=== PATIENT | male | born 1965 | race Caucasian/White ===

== ENCOUNTER → 2019-06-11 | Outpatient (CLI) | payer OTHER ==
[~2019-06-11] MED LIST: AMLODIPINE BESY10 MG PO; AVAPRO300 MG PO; BYSTOLIC 5 MG5 M1 PO; CARAFATE1 GM PO; COZAAR 50 MG TA50 M1 PO; FLONASE 0.05%50 MCG NASAL; LEXAPRO 10 MG T10 M1 PO; PRAVACHOL40 MG PO; PRILOSEC20 MG PO; REGLAN 10 MG TA10 MG PO
== END ==
LOC: CAT 15:19
DX: Z13.6 Encounter for screening for cardiovascular disorders (principal); I25.10 Atherosclerotic heart disease of native coronary artery without angina pectoris; E78.00 Pure hypercholesterolemia, unspecified

== ENCOUNTER → 2019-08-10 | Outpatient (CLI) | payer BC | LOC: SJCVCIMAG 10:32 | DX: I08.8 Other rheumatic multiple valve diseases (principal); E78.00 Pure hypercholesterolemia, unspecified; I10 Essential (primary) hypertension; E78.5 Hyperlipidemia, unspecified; F17.210 Nicotine dependence, cigarettes, uncomplicated; Z82.49 Family history of ischemic heart disease and other diseases of the circulatory system ==

== ENCOUNTER → 2020-04-12 | Outpatient (CLI) | payer BC, OTHER | LOC: SJCVCIMAG 06:26 | PROVIDERS: ATTEND Internal Medicine Cardiovascular Disease | DX: I11.9 Hypertensive heart disease without heart failure (principal); E78.5 Hyperlipidemia, unspecified; R93.1 Abnormal findings on diagnostic imaging of heart and coronary circulation; R94.31 Abnormal electrocardiogram [ECG] [EKG]; F17.200 Nicotine dependence, unspecified, uncomplicated ==